=== PATIENT | female | born 1985 | race African-American/Black ===

== ENCOUNTER 2016-03-13 05:49 | Day surgery (SDC) | payer OTHER ==
[2016-03-12 11:02] VITALS: BMI 25.5
[2016-03-13] VITALS (11 sets, daily range): BP systolic 102–119; BP diastolic 50–66; PULSE 62–77; RESP 14–21; Ht 175.3 cm; Wt 78.6 kg
[~2016-03-13] VITALS: Ht 175.3 cm; Wt 78.6 kg
[~2016-03-13 05:49] MED LIST: ASPI-535 PO; CEFAZOLIN 2 GM/50 ML (PMX) 50 ML IVPB ONE; EST2 PO; MEDROXYPROGESTERONE PO; SPIR100T31 PO
[2016-03-13] MEDS ORDERED: POLYMYXIN/BACITRACIN 1L IRRIG ONE (06:53)
[2016-03-13] MEDS ORDERED: BUPIVACAINE 0.5%/EPI (SDV) 30 ML INJ ONE (06:54)
[2016-03-13] MEDS ORDERED: EPINEPHrine 0.1 MG/ML SYG ONE (06:55)
[2016-03-13] MEDS ORDERED: GENTAMICIN 80 MG INJ ONE (06:55)
[2016-03-13] MEDS ORDERED: CEFAZOLIN 1 GM INJ ONE (07:00)
[2016-03-13] MEDS ORDERED: ONDANSETRON 4 MG INJ ONE (07:00)
[2016-03-13] MEDS ORDERED: PROPOFOL 100 ML ONE (07:24)
[2016-03-13] MEDS ORDERED: MIDAZOLAM 1 MG/ML 2 ML INJ ONE (07:25)
[2016-03-13] MEDS ORDERED: ACETAMINOPHEN 1000MG/100ML IV 100 ML ONE (07:25)
--- NOTE | 2016-03-13 07:36 | HPN ---
Date/Time of Note Date/Time of Note DATE: 03/13/16 TIME: 07:36 Interval H&P Admission Note Pt. seen H&P reviewed: No system changes SHANT RESENDIZ MD Mar 13, 2016 07:36
[2016-03-13] MEDS ORDERED: EXPAREL NOTE (BUPIVICAINE LIPOSOMAL) XX SCH (08:00)
[2016-03-13] MEDS ORDERED: BUPIVACAINE LIPOSOME/PF 266 MG/20 ML VIAL INFIL SCH (08:00)
[2016-03-13] MEDS ORDERED: ROCURONIUM 50 MG INJ ONE (08:04)
[2016-03-13] MEDS ORDERED: LIDOCAINE 2% (SDV) 5 ML INJ ONE (08:04)
[2016-03-13] MEDS ORDERED: ONDANSETRON 4 MG INJ IV PRN ×2 (08:30→10:00)
[2016-03-13] MEDS ORDERED: FENTAnyl 50 MCG/ML VIAL IV PRN ×2 (08:30)
[2016-03-13] MEDS ORDERED: OXYCODONE/ACETAMINOPHEN (5/325) TAB PO PRN ×3 (08:30→10:00)
[2016-03-13] MEDS ORDERED: MEPERIDINE 25 MG INJ IV PRN (08:30)
[2016-03-13] MEDS ORDERED: METOCLOPRAMIDE 10 MG INJ IV PRN (08:30)
[2016-03-13] MEDS ORDERED: HYDROmorphONE (0.2 MG/ML) 10ML SYG IV PRN ×2 (08:30)
[2016-03-13] MEDS ORDERED: DIPHENHYDRAMINE 50 MG INJ IV PRN (08:30)
[2016-03-13] MEDS ORDERED: hydrALAzine 20 MG INJ IV PRN (08:30)
[2016-03-13] MEDS ORDERED: LABETALOL HCL 20MG INJ IV PRN (08:30)
[2016-03-13] MEDS ORDERED: GLYCOPYRROLATE 0.4 MG INJ ONE (09:40)
[2016-03-13] MEDS ORDERED: NEOSTIGMINE 3 MG/3 ML SYRINGE ONE (09:40)
[2016-03-13] MEDS ORDERED: DEXAMETHASONE 4 MG/ML 1 ML INJ ONE (09:43)
[2016-03-13] MEDS ORDERED: HYDROCODONE/APAP (5/325) TAB PO PRN (10:00)
[2016-03-13] MEDS ORDERED: morphine 2 MG INJ IV PRN (10:00)
[2016-03-13] MEDS: HYDROmorphONE (0.2 MG/ML) 10ML SYG IV PRN ×2 (10:11→10:23)
[2016-03-13] MEDS: FENTAnyl 50 MCG/ML VIAL IV PRN ×2 (10:11→10:23)
--- NOTE | 2016-03-13 10:12 | OPR ---
Date/Time of Note Date/Time of Note DATE: 03/13/16 TIME: 10:00 Operative Report Free Text/Dictation Plastic Surgery Operative Report Preoperative diagnosis: gender identity disorder Postoperative diagnosis:same Procedure: bilateral breast tissue ship pilot dispatcher insertion Surgeon: paulo Rees.:n/a Anesthesia:gen EBL:min IV fluids:per flow sheet Findings:n/a Complications:none Dispo:home Indications for procedure: 30-year-old female presents today for bilateral breast reconstruction with tissue expanders. The risks, benefits, alternatives of performing this procedure were discussed with the patient including the risks of bleeding, infection, wound healing problems, asymmetry, need for revision, and the patient states that she understands these risks and would like to proceed with the procedure. All questions were answered, no guarantees were given with regards to the outcome of this procedure. Description of procedure: The patient was brought to the operating room at [facility] where general anesthesia was induced. Next, the patient was prepped and draped in the usual sterile fashion. First, a total of 5 mL of 0.25% Marcaine with 1:200,000 epinephrine were injected into the planned incision site in the new inframammary fold in each breast, 8 cm below each nipple. It should be noted that the nipples were asymmetric, and the decision was made to make the breasts as symmetric as possible and if the nipples are asymmetric, a lift may be necessary in the future. Next, the 15 blade was used to make an incision into the right breast, and then the electrocautery was used to dissect down to the pectoralis muscle. The pectoralis muscle was released on its inferior border. Next, the subpectoral space was entered and a pocket was created with electrocautery. Dissection then proceeded to release the medial inferior border of the pectoralis muscle under direct visualization. Once adequate pocket had been created, the breast was irrigated antibiotic irrigation, hemostasis was achieved with the electrocautery , and attention was turned to the left breast. The 15 blade was used to make an incision into the left breast, and then the electrocautery was used to dissect down to the pectoralis muscle. The pectoralis muscle was released on its inferior border. Next, the subpectoral space was entered and a pocket was created with electrocautery. Dissection then proceeded to release the medial inferior border of the pectoralis muscle under direct visualization. Once an adequate pocket had been created, the breast was irrigated with antibiotic irrigation, hemostasis was achieved with the electrocautery, and then the pockets were inspected. They were symmetric. Therefore, gloves were changed, a final round of hemostasis was carried out. The breasts are irrigated once again, and then Allergan [id number] Tissue expanders were opened, the air was evacuated, the expanders were rinsed in antibiotic irrigation, and then 60cc were infiltrated into each ship pilot dispatcher and the expanders were placed into each breast. The serial number on the right was [id number] and the serial number on the left was [id number]. The breasts were inspected and were symmetric. The deep tissue was then closed with 3-0 Vicryl suture, and the dermis was closed with 3-0 Vicryl suture and skin with 4-0 Monocryl suture and then Dermabond. The patient tolerated the procedure well, there were no complications, she will follow up next week. Procedure Date: Mar 13, 2016 SHANT RESENDIZ MD Mar 13, 2016 10:11
== END 2016-03-13 12:15 | disposition home or self-care (01) ==
LOC: EDSEX 05:49 → SDS 05:49
PROVIDERS: ATTEND Surgery Plastic and Reconstructive Surgery
DX: Z87.890 Personal history of sex reassignment (principal)
CPT/HCPCS: 19357; C1789; C9290; J0131; J0690; J1100; J1170; J1580; J2250; J2405; J2710; J3010; Z7512; Z7610; J0171

== ENCOUNTER 2016-09-11 06:25 | Day surgery (SDC) | payer OTHER ==
[2016-09-10 16:02] VITALS: BMI 24.8
[2016-09-11] VITALS (10 sets, daily range): BP systolic 108–122; BP diastolic 57–71; PULSE 72–83; RESP 15–20; Ht 175.3 cm; Wt 76.0 kg
[~2016-09-11] VITALS: Ht 175.3 cm; Wt 76.0 kg
[~2016-09-11 06:25] MED LIST changes: -CEFAZOLIN 2 GM/50 ML (PMX) 50 ML IVPB ONE
[2016-09-11] MEDS ORDERED: CEFAZOLIN 1 GM INJ ONE (07:00)
[2016-09-11] MEDS ORDERED: FLUO10TA PO ×2 (07:13→07:57)
[2016-09-11] MEDS ORDERED: SPIR100T PO (07:55)
[2016-09-11] MEDS ORDERED: MEDR10TA2 PO (07:55)
[2016-09-11] MEDS ORDERED: DEPOEST IM (07:57)
[2016-09-11] MEDS ORDERED: PROPOFOL 40 ML ONE (08:07)
[2016-09-11] MEDS ORDERED: ROCURONIUM 50 MG INJ ONE (08:07)
[2016-09-11] MEDS ORDERED: FENTAnyl 50 MCG/ML VIAL ONE ×2 (08:07→10:15)
[2016-09-11] MEDS ORDERED: MIDAZOLAM 1 MG/ML 2 ML INJ ONE (08:07)
[2016-09-11] MEDS ORDERED: GENTAMICIN 80 MG INJ ONE (08:28)
[2016-09-11] MEDS ORDERED: EPINEPHrine 1 MG INJ ONE (08:29)
[2016-09-11] MEDS ORDERED: POLYMYXIN/BACITRACIN 1L IRRIG ONE (08:29)
--- NOTE | 2016-09-11 08:55 | HPN ---
Date/Time of Note Date/Time of Note DATE: 09/11/16 TIME: 08:55 Interval H&P Admission Note Pt. seen H&P reviewed: No system changes SHANT RESENDIZ MD Sep 11, 2016 08:55
[2016-09-11] MEDS ORDERED: BUPIVACAINE LIPOSOME/PF 266 MG/20 ML VIAL INFIL SCH (09:00)
[2016-09-11] MEDS ORDERED: SODIUM CL BACTERIOSTATIC 30 ML INJ ONE (09:00)
[2016-09-11] MEDS ORDERED: BUPIVACAINE 0.25%/EPI (SDV) 10 ML INJ ONE (09:00)
[2016-09-11] MEDS ORDERED: METOCLOPRAMIDE 10 MG INJ IV PRN (09:30)
[2016-09-11] MEDS ORDERED: MEPERIDINE 25 MG INJ IV PRN (09:30)
[2016-09-11] MEDS ORDERED: FENTAnyl 50 MCG/ML VIAL IV PRN ×3 (09:30)
[2016-09-11] MEDS ORDERED: DIPHENHYDRAMINE 50 MG INJ IV PRN (09:30)
[2016-09-11] MEDS ORDERED: HYDROmorphONE (0.2 MG/ML) 10ML SYG IV PRN ×3 (09:30)
[2016-09-11] MEDS ORDERED: LABETALOL HCL 20MG INJ IV PRN (09:30)
[2016-09-11] MEDS ORDERED: ONDANSETRON 4 MG INJ IV PRN ×2 (09:30→11:30)
[2016-09-11] MEDS ORDERED: EPHEDrine SULFATE 50 MG/5 ML SYG IV PRN (09:30)
[2016-09-11] MEDS ORDERED: OXYCODONE/ACETAMINOPHEN (5/325) TAB PO PRN ×2 (09:30)
[2016-09-11] MEDS ORDERED: METOCLOPRAMIDE 10 MG INJ ONE (10:16)
[2016-09-11] MEDS ORDERED: ONDANSETRON 4 MG INJ ONE (10:16)
[2016-09-11] MEDS ORDERED: DEXAMETHASONE 4 MG/ML 1 ML INJ ONE (10:16)
[2016-09-11] MEDS ORDERED: KETOROLAC 30 MG INJ ONE (10:16)
[2016-09-11] MEDS ORDERED: ACETAMINOPHEN 1000MG/100ML IV 100 ML ONE (10:16)
--- NOTE | 2016-09-11 11:09 | OPPN ---
Date/Time of Note Date/Time of Note DATE: 09/11/16 TIME: 11:08 Operative Report Preoperative Diagnosis transgender Postoperative Diagnosis same Operation/Procedure Performed bilateral breast nuclear medicine technician removal, implant placement, and revision Anesthesia: general Estimated blood loss: 10 - 50 ml's Grafts/Implants bilateral breast implants Complications: None SHANT RESENDIZ MD Sep 11, 2016 11:09
--- NOTE | 2016-09-11 11:24 | OPR ---
Date/Time of Note Date/Time of Note DATE: 09/11/16 TIME: 11:16 Operative Report Free Text/Dictation Plastic Surgery Operative Report Preoperative diagnosis: transgender breast reconstruction Postoperative diagnosis: same Procedure: bilateral paint laboratory technician removal and implant placement and revision Surgeon:paulo Rees.:n/a Anesthesia:gen EBL:20cc IV fluids:per flow sheet Findings:n/a Complications: none Dispo:home Indications for procedure: 30-year-old patient presents to undergo second stage breast reconstruction surgery. We will remove the expanders and place permanent implants, and excise excess skin and revised the pocket. The risks, benefits, alternatives of performing this procedure were discussed with the patient including the risks of bleeding, infection, wound healing problems, asymmetry, as well as implant related complications such as deflation and capsular contracture, and the patient states that they understand these risks and would like to proceed with the procedure. All questions were answered, no guarantees were given with regards to the outcome of this procedure. Description of procedure: The patient was brought to the operating room at [facility] where general anesthesia was induced and the patient was prepped and draped in usual sterile fashion. First, a total of 5 cc of 0.25% Marcaine with 1: 200,000 epinephrine were injected into each previous incision site. Next, the right breast incision was opened with the 10 blade, and dissection was carried out to the capsule with electrocautery. The capsule was opened with electrocautery and the paint laboratory technician was then deflated. There were 620 cc present. Therefore, the paint laboratory technician was removed. The superior portion of the breast was tight and a superior capsulotomy was carried out. This was extensive and was in the submuscular plane until there was significant laxity of the tissues. This capsulotomy extended laterally as well. A 650 cc sizer was then opened and was inserted into the breast. This gave the desired appearance of the breast. The sizer was then removed and an additional medial and superior capsulotomy was carried out. Excess skin was trimmed from around the incision. Attention was then turned to the left breast where a similar procedure was carried out. The incision was opened with the 10 blade and dissection was carried out to the capsule with electrocautery. The capsule was opened and the paint laboratory technician was deflated. There was 610 cc present. The paint laboratory technician was removed. Similarly, a superior and superior lateral capsulotomy was carried out. Additional superior medial dissection was carried out as well. Once again, this is in the submuscular plane until there is laxity of the tissues. The sizer was then removed from the right breast was placed into the left breast. The breasts were symmetric. Therefore, the sizer was removed, and excess tissue was trimmed from the left breast. The breasts were irrigated with antibiotic irrigation and multiple rounds of hemostasis were carried out. Finally, gloves were changed, the skin was prepped with Betadine, and then an [employer] Inspira 650cc implant SRF style SN [id number] was opened, rinsed in antibiotic irrigation, and was inserted into the right breast with minimal touch technique. The same size and style implant, serial number [id number] was opened, rinsed in antibiotic irrigation, and was inserted into the left breast with minimal touch technique. The incisions were towel clipped closed. The patient was sat up on the operating room table, the breasts were symmetric, and therefore incisions are closed with a deep layer of 3-0 Vicryl sutures on the capsule followed by 3-0 Vicryl sutures and 4-0 Monocryl sutures and then Dermabond. 60 cc of diluted Exparel solution were injected throughout the chest for postoperative analgesia. The patient tolerated procedure well, there were no complications, follow-up information and wound care instructions were given Anesthesia: general Estimated Blood Loss: 10 - 50 ml's Complications: None SHANT RESENDIZ MD Sep 11, 2016 11:24
[2016-09-11] MEDS ORDERED: morphine 4 MG/ML VIAL IV PRN (11:30)
[2016-09-11] MEDS ORDERED: HYDROCODONE/APAP (10/325) TAB PO PRN (11:30)
[2016-09-11] MEDS ORDERED: POLYMYXIN/BACITRACIN 1L IRRIG IRR ONE (12:49)
[2016-09-11] MEDS ORDERED: GENTAMICIN 80 MG INJ IVPB ONE (12:50)
== END 2016-09-11 13:05 | disposition home or self-care (01) ==
LOC: SDS 06:25
PROVIDERS: ATTEND Surgery Plastic and Reconstructive Surgery
DX: Z41.1 Encounter for cosmetic surgery (principal)
CPT/HCPCS: 19380; C1789; C9290; J0131; J0171; J0690; J1100; J1580; J1885; J2250; J2405; J2765; J3010; Z7512; Z7610

== ENCOUNTER 2017-04-02 10:03 | Day surgery (SDC) | END 2017-04-02 20:15 | disposition home or self-care (01) ==